=== PATIENT | male | born 1975 ===

== ENCOUNTER 2017-01-25 11:13 | Inpatient (IN) | payer MEDICAID ==
[2017-01-25] MEDS ORDERED: Magnesium Hydroxide LIQ* 30 ML UDC PO PRN (17:08)
[2017-01-25] MEDS ORDERED: Acetaminophen TAB* 325 MG PO PRN (17:08)
[2017-01-25] MEDS ORDERED: Senna TAB PO PRN (17:08)
[2017-01-25] MEDS ORDERED: Dextrose 50% Syringe 50 ML* 25 GM/50 ML SYRINGE IV PUSH PRN (17:29)
[2017-01-25] MEDS: Amoxicillin/Clavulanate TAB* 875 MG PO SCH (20:58)
[2017-01-25] MEDS: Famotidine TAB* 20 MG PO SCH (20:59)
[2017-01-25] MEDS: Docusate CAP* 100 MG PO SCH (20:59)
[2017-01-25] MEDS: Heparin VIAL(*) 5000 UNITS/ML VIAL (FIVE THOUSAND) SUBCUT SCH (20:59)
[2017-01-25] MEDS: Insulin LISPRO* 1 UNITS UNIT SUBCUT SCH (21:21)
--- NOTE | 2017-01-25 22:08 | HP ---
ADMISSION HISTORY AND PHYSICAL: DATE OF ADMISSION: 01/25/17 REASON FOR REFERRAL: Incarcerated left inguinal hernia; status post inguinal hernia repair and left orchiectomy. HISTORY OF PRESENT ILLNESS: Moreno Zaldivar is a 41-year-old male. He had a left inguinal hernia, which was left untreated for a while. He presented to [facility], 01/16/17. At that time, the patient was presenting with nausea, vomiting, occasional fevers and chills and left lower quadrant pain which had developed on 01/11/17. The patient had intermittent bouts of nonbloody vomiting with pain in his left lower quadrant which radiated into his groin. He felt like he was feverish. By the time he had presented to the emergency room, he had not had a bowel movement in 2 days. Upon presentation to the ER, he had dilated loops of bowel with evidence of inflammation and associated fluid deep within the scrotum. He also had evidence of acute kidney injury with a mildly elevated white blood cell count. The patient was seen by Surgery and it was decided that the patient required an exploratory laparotomy with possible fixing of the hernia and possible orchiectomy. The patient was taken to the operating room on 01/16/17 and underwent reduction of the left inguinal hernia with left orchiectomy and left inguinal hernia repair with polypropylene mesh and primary closure of the abdomen. He was extubated on 01/17. On 01/18/17, he was noted to be drowsy, which was felt to be due to opioid use through CH[employer]. The CH[employer] PERSON was discontinued. He had a continued ileus by 01/18/17, but by 01/21/17, he was passing gas and started on a clear liquid diet. By 01/22/17, his [place] was removed and was advanced to a full liquid diet. The patient had an elevated white blood cell count. On 01/23/17, the scrotum was erythematous and he was started on Zosyn for probable cellulitis. His white blood cell count was slowly falling. He was switched to oral Augmentin. He was felt to have physical therapy and occupational therapy needs. He is now being admitted for inpatient rehab so that he might return to independent living. PAST MEDICAL HISTORY: Not really significant. Of note, he had elevated blood sugars while at [facility]. He was put on fingersticks with appropriate sliding scale coverage. CURRENT MEDICATIONS: Include: 1. Tylenol. 2. Pepcid. 3. Heparin for DVT prophylaxis. 4. Augmentin. 5. Sliding scale insulin coverage. ALLERGIES: He has no known drug allergies. SOCIAL HISTORY: He is a nonsmoker, nondrinker. He lives with his parents in a 2- story house, but stays largely on one level. 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 REVIEW OF SYSTEMS: The patient report no current belly pain. No shortness of breath. No chest pain. PHYSICAL EXAMINATION VITAL SIGNS: The patient's temperature is 97.8, blood pressure is 135/66, pulse 79, and respirations 18. HEENT: His extraocular movements are intact. Tongue is midline. NECK: Supple. LUNGS: Sound clear to auscultation bilaterally. HEART: Sounds are regular. S1 and S2 audible. ABDOMEN: Examined. There were sutures along his right lower abdomen. His bowel sounds are audible, but diminished. NEUROLOGIC: He is awake, alert, oriented. Muscle strength is about 4+/5 throughout. EXAMINATION: Shows a large amount of scrotal edema with some erythema. He does have a RED drain still present from the scrotum. FUNCTIONAL EXAM: The patient transfers with min assist. ASSESSMENT: Status post repair of left inguinal hernia with left orchiectomy. PLAN: Integrate him into a comprehensive and therapeutic rehab program with the following goals: 1. Physical Therapy will work with the patient. They are going to work on functional transfer training, ambulation training with a walker. 2. Occupational Therapy will see the patient, work on his activities of daily living including toileting and toilet transfers. 3. We are going to continue his sliding scale coverage with fingersticks 4 times a day for hyperglycemia and possible diabetes. 4. His bowel will be regulated. 5. Heparin for DVT prophylaxis. 6. health services coordinator will be closely involved to make sure that any services and equipment the patient requires are in place prior to discharge. 7. Family training as appropriate. 8. Speech Therapy will see the patient, do a cognitive evaluation on the patient. 9. Advance directives: The patient is a full code. 10. Home with appropriate services. ESTIMATED LENGTH OF STAY: 7 to 10 days. [id number]/[facility] #: [id number] [facility]
[2017-01-26] MEDS: Heparin VIAL(*) 5000 UNITS/ML VIAL (FIVE THOUSAND) SUBCUT SCH ×3 (06:06→21:02)
[2017-01-26 06:49] LABS: Hematocrit 37 % (42-52); Hemoglobin 12.1 g/dl (14.0-18.0); Mean Corpuscular HGB Conc 33 g/dl (31-36); Mean Corpuscular Hemoglobin 28 pg (27-31); Mean Corpuscular Volume 85 fL (80-94); Mean Platelet Volume 9 um3 (7.4-10.4); Red Blood Count 4.34 10^6/ul (4.0-5.4); Red Cell Distribution Width 14 % (10.5-15); White Blood Count 12.7 10^3/ul (3.5-10.8)
[2017-01-26 07:02] LABS: Albumin 2.5 g/dL (3.2-5.2); BUN/Creatinine Ratio 17.4 (8-20); Calcium 8.4 mg/dL (8.6-10.3); EGFR African American 160.9 (>60); EGFR Non-African American 125.1 (>60); Globulin 3.2 g/dL (2-4); Potassium 4.6 mmol/L (3.5-5.0); Total Bilirubin 0.3 mg/dL (0.2-1.0); Total Protein 5.7 g/dL (6.4-8.9)
[2017-01-26] MEDS: Insulin LISPRO* 1 UNITS UNIT SUBCUT SCH ×4 (08:30→21:02)
[2017-01-26] MEDS: Famotidine TAB* 20 MG PO SCH ×2 (09:00→20:15)
[2017-01-26] MEDS: Amoxicillin/Clavulanate TAB* 875 MG PO SCH ×2 (09:00→20:16)
[2017-01-26] MEDS: Docusate CAP* 100 MG PO SCH ×2 (09:45→20:11)
--- NOTE | 2017-01-26 13:06 | PMRUTEAM ---
PMRU: Goals Current Status: Nursing: Current Status Skin Deviations [Groin] Incision Skin Deviations [Midline Incision Abdomen] Skin Deviation Description [ sutures CDI Groin] Skin Deviation Description [ jen CDI Midline Abdomen] Drain Type [Groin] RED Drain Bladder Current Status voiding appropriately Nutrition Current Status excellent FS, AC, HS under control Physical Therapy: Current Status Bed Mobility Assistance supervision Transfer Moblility Assistance CGA Transfer/Bed Mobility Rolling Walker Recommended Devices Ambulation Assistance CGA-Mis Ambulation Assistive Devices Rolling Walker Occupational Therapy: Current Status Upper Body Dressing Supervision Lower Body Dressing Supervision Bathing Min Assist Toileting Min Assist Toilet Transfer Supervision Eating Independent SPEECH THERAPY CURRENT STATUS: difficulty with vocabulary, following 2 step directions. Evaluation ongoing. Rec Therapy: Current Status Summary of Assessment and Pt. was recently admitted to the unit, open to Clinical Impression conversation. Pt. was vague with his responses and did not provide a lot of depth. Pt. was open to continued leisure visits. Treatment Goals Pt. will engage in leisure activities while on the unit. Treatment Plan Provide RT services and encourage involvement. Social Work: Current Status Discharge Plan return home with home care svs and family support Potential for Family Training TBD Anticipated Discharge Home Destination Discharge With home care svs and family support Goals: Physical Therapy: Initial Goals Bed Mobility Assistance Independent Transfer Mobility Assistance Independent Transfer/Bed Mobility Rolling Walker Recommended Devices Ambulation Independent Ambulation Recommended Devices Rolling Walker Ambulation Distance 150 Stairs Assistance Independent Stair Recommended Devices Two Rails Number of Stairs 10 Occupational Therapy: Initial Goals Goals to be Completed in (Days 3-4 ) Upper Body Bathing Routine Independent Lower Body Bathing Routine Modified Independent with Upper Body Dressing Routine Independent Lower Body Dressing Routine Modified Independent with Toilet Hygeine and Clothing Modified Independent with Management Routine Toilet Transfer Routine Modified Independent with Step-In Shower Transfer Modified Independent with Routine Functional Transfers for ADL Modified Independent with Grooming Routine Independent Feeding Routine Independent Social Work: Goals Discharge Plan return home with home care svs and family support Potential for Family Training TBD Anticipated Discharge Home Destination Discharge With home care svs and family support SPEECH THERAPY GOALS: follow 2 step directions with 40% accuracy; improve word retrieval to 80% accuracy. Care Plan: Care Plan Cardiovascular- Improve/Maintain Start: 01/25/17 22:24 Freq: DAILY Status: Active Target: Activity Type Activity Date Activity User E-Sign Co-Sign Detail Recorded Client Recorded Date Recorded By Document 01/26/17 08:00 [id number] 01/26/17 11:34 [id number] 01/26/17 08:00 PMRU Outcome: Cardiovascular Vital Signs q Shift for 48hrs Then BID Yes Daily Weight Ordered No Current Cardiovascular Outcome/Goal Maintain/ Achieve Baseline HR, BP , Perfusion Free of Abnormal Cardiac Symptoms Communication-Improve/Maintain Start: 01/25/17 22:24 Freq: DAILY Status: Active Target: Activity Type Activity Date Activity User E-Sign Co-Sign Detail Recorded Client Recorded Date Recorded By Document 01/26/17 04:04 [id number] 01/26/17 04:08 [id number] 01/26/17 04:04 PMRU Outcome: Communication/Cognitive Status Outcome/Goals Use Comm Tools/ Devices Makes Needs Known Effectively Coping/Psych-Improve/Maintain Start: 01/25/17 22:24 Freq: DAILY Status: Active Target: Activity Type Activity Date Activity User E-Sign Co-Sign Detail Recorded Client Recorded Date Recorded By Document 01/26/17 08:00 [id number] 01/26/17 11:34 [id number] 01/26/17 08:00 PMRU Outcome: Coping/Psychosocial Coping Outcome/Goals Verbalization of Acceptance of Rehab Admit Psychosocial Outcome/Goals Maintain/ Improve Emotional Health Demonstrates Knowledge of Healthy Coping Mechanisms Available Cooperate/ Participate in Plan Progression Toward Outcome/Goals - Progressing Coping Progression Toward Outcome/Goals - Progressing Psychosocial DVT Prophylaxis- Improve/Maintain Start: 01/25/17 22:24 Freq: DAILY Status: Active Target: Activity Type Activity Date Activity User E-Sign Co-Sign Detail Recorded Client Recorded Date Recorded By Document 01/26/17 08:00 [id number] 01/26/17 11:34 [id number] 01/26/17 08:00 PMRU Outcome: DVT Prophylaxis Outcome/Goals Remains Free of DVT TEDS Stockings on Every AM, Off at HS Progression Toward Outcome/Goals Progressing Discharge Planning - Improve/Maintain Start: 01/25/17 22:24 Freq: DAILY Status: Active Target: Activity Type Activity Date Activity User E-Sign Co-Sign Detail Recorded Client Recorded Date Recorded By Document 01/26/17 04:04 [id number] 01/26/17 04:08 [id number] 01/26/17 04:04 PMRU Outcome: Discharge Planning Update Patient Family No Outcome/Goals Demonstrates Understanding of Discharge Plan Education-Improve/Maintain Start: 01/25/17 22:24 Freq: DAILY Status: Active Target: Activity Type Activity Date Activity User E-Sign Co-Sign Detail Recorded Client Recorded Date Recorded By Document 01/26/17 08:00 [id number] 01/26/17 11:34 [id number] 01/26/17 08:00 PMRU Outcome: Education Outcome/Goals Encourage Questions Progression Toward Outcome/Goals Progressing /GI-Improve/Maintain Start: 01/25/17 22:24 Freq: DAILY Status: Active Target: Activity Type Activity Date Activity User E-Sign Co-Sign Detail Recorded Client Recorded Date Recorded By Document 01/26/17 08:00 [id number] 01/26/17 11:34 [id number] 01/26/17 08:00 PMRU Outcome: Genitourinary/ Gastrointestinal Genitourinary- Outcome/Goals Maintain/ Achieve Urinary Continence Remain Free of Hospital- Acquired UTI Gastrointestinal-Outcome/Goals Maintain/ Achieve Bowel Regularity in Accordance with Pt's Baseline Prevent Constipation Progression Toward Outcome/Goals - Progressing Progression Toward Outcome/Goals - GI Progressing Neurological- Improve/Maintain Start: 01/25/17 22:24 Freq: DAILY Status: Active Target: Activity Type Activity Date Activity User E-Sign Co-Sign Detail Recorded Client Recorded Date Recorded By Document 01/26/17 08:00 [id number] 01/26/17 11:34 [id number] 01/26/17 08:00 PMRU Outcome: Neurological Weakness/Aphasia Weakness Aphasia Outcome/Goals Maintain/ Achieve Baseline Neurological Status Improve Neurological Status Progression Toward Outcome/Goals Progressing Outcome/Goals Met Comment pt has aphasia Nutrition/Swallowing- Improve/Maintain Start: 01/25/17 22:24 Freq: DAILY Status: Active Target: Activity Type Activity Date Activity User E-Sign Co-Sign Detail Recorded Client Recorded Date Recorded By Document 01/26/17 08:00 [id number] 01/26/17 11:34 [id number] 01/26/17 08:00 PMRU Outcome: Nutrition/Swallowing Outcome/Goals Demonstrates Adequate Hydration/ Prevents Dehydration Maintain/ Improve Nutritional Status Progression Toward Outcome/Goals Progressing Pain/Comfort- Improve/Maintain Start: 01/25/17 22:24 Freq: DAILY Status: Active Target: Activity Type Activity Date Activity User E-Sign Co-Sign Detail Recorded Client Recorded Date Recorded By Document 01/26/17 08:00 [id number] 01/26/17 11:34 [id number] 01/26/17 08:00 PMRU Outcome: Pain/Comfort Outcome/Goals Demonstrates Knowledge and Use of Available Comfort Measures Achieves Acceptable Comfort/Pain Level as Determined by Patient/Condit Maintain Comfort Level Allowing Patient to Fully Participate in Rehab Progression Toward Outcome/Goals Progressing Outcome/Goals Met Comment denies pain Safety- Improve/Maintain Start: 01/25/17 22:24 Freq: DAILY Status: Active Target: Activity Type Activity Date Activity User E-Sign Co-Sign Detail Recorded Client Recorded Date Recorded By Document 01/26/17 08:00 [id number] 01/26/17 11:34 [id number] 01/26/17 08:00 PMRU Outcome: Safety Outcome/Goals Remain Free of Injury or Harm Cooperates with Safety Measures for Least Restrictive Environment Progression Toward Outcome/Goals Progressing Outcome/Goals Met Comment tamper-free PA in place - pt ringing appropriately Skin- Improve/Maintain Start: 01/25/17 22:24 Freq: DAILY Status: Active Target: Activity Type Activity Date Activity User E-Sign Co-Sign Detail Recorded Client Recorded Date Recorded By Document 01/26/17 08:00 [id number] 01/26/17 11:34 [id number] 01/26/17 08:00 PMRU Outcome: Skin Skin Risk Level Medium Outcome/Goals Maintain/ Improve Skin Intergrity Surgical Incisions Healing Progression Toward Outcome/Goals Progressing Outcome/Goals Met Comment pt repositioning on his own Medicine Note: Length of Stay: [1 week] Anticipated Discharge Destination: Home Tentative Discharge Date: [home] Discharged to: [home]
[2017-01-27] MEDS: Heparin VIAL(*) 5000 UNITS/ML VIAL (FIVE THOUSAND) SUBCUT SCH ×3 (05:37→21:36)
[2017-01-27] MEDS: Insulin LISPRO* 1 UNITS UNIT SUBCUT SCH (08:03)
[2017-01-27] MEDS: Famotidine TAB* 20 MG PO SCH ×2 (09:00→21:36)
[2017-01-27] MEDS: Docusate CAP* 100 MG PO SCH ×2 (09:00→21:35)
[2017-01-27] MEDS: Amoxicillin/Clavulanate TAB* 875 MG PO SCH ×2 (09:00→21:36)
[2017-01-27 09:48] LABS: Hematocrit 36 % (42-52); Hemoglobin 12.1 g/dl (14.0-18.0); Mean Corpuscular HGB Conc 34 g/dl (31-36); Mean Corpuscular Hemoglobin 29 pg (27-31); Mean Corpuscular Volume 85 fL (80-94); Mean Platelet Volume 8 um3 (7.4-10.4); Red Blood Count 4.21 10^6/ul (4.0-5.4); Red Cell Distribution Width 13 % (10.5-15); White Blood Count 12.6 10^3/ul (3.5-10.8)
[2017-01-28] MEDS: Heparin VIAL(*) 5000 UNITS/ML VIAL (FIVE THOUSAND) SUBCUT SCH ×3 (05:57→21:55)
[2017-01-28] MEDS: Docusate CAP* 100 MG PO SCH ×2 (07:40→21:46)
[2017-01-28] MEDS: Amoxicillin/Clavulanate TAB* 875 MG PO SCH ×2 (08:18→21:55)
[2017-01-28] MEDS: Famotidine TAB* 20 MG PO SCH ×2 (08:18→21:55)
[2017-01-29] MEDS: Heparin VIAL(*) 5000 UNITS/ML VIAL (FIVE THOUSAND) SUBCUT SCH ×3 (06:40→22:17)
[2017-01-29] MEDS: Famotidine TAB* 20 MG PO SCH ×2 (08:19→22:16)
[2017-01-29] MEDS: Amoxicillin/Clavulanate TAB* 875 MG PO SCH ×2 (08:19→22:16)
[2017-01-29] MEDS: Docusate CAP* 100 MG PO SCH ×2 (08:20→22:15)
[2017-01-30] MEDS: Heparin VIAL(*) 5000 UNITS/ML VIAL (FIVE THOUSAND) SUBCUT SCH ×3 (06:52→21:09)
[2017-01-30] MEDS: Amoxicillin/Clavulanate TAB* 875 MG PO SCH ×2 (08:27→20:09)
[2017-01-30] MEDS: Famotidine TAB* 20 MG PO SCH ×2 (08:27→20:09)
[2017-01-30] MEDS: Docusate CAP* 100 MG PO SCH ×2 (10:40→20:09)
--- NOTE | 2017-01-30 12:58 | PMRUTEAM ---
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] be intact Skin Deviation Description [ jen removed by MD Midline Abdomen] Drain Type [scrotum] RED Drain Drain Type [Groin] RED Drain Bladder Current Status voiding appropriately Nutrition Current Status excellent FS, AC, HS under control Physical Therapy: Current Status Bed Mobility Assistance Supervision Transfer Moblility Assistance Supervision Transfer/Bed Mobility None Recommended Devices Ambulation Assistance Supervision Ambulation Assistive Devices None Number of Feet Patient 600' 300' and 150' Ambulated Stairs Assistance Supervision Stairs Recommended Devices One Rail,Two Rails Number of Stairs 12 Occupational Therapy: Current Status Upper Body Dressing Independent Lower Body Dressing Independent,Ind with Adaptive Equip Bathing Independent,Ind with Adaptive Equip Toileting Ind with Adaptive Equip Toilet Transfer Ind with Adaptive Equip Shower Transfer Supervision Eating Independent Rec Therapy: Current Status Summary of Assessment and RT assessment complete and pt. is aware of RT Clinical Impression services. Minimal interests were identified by pt . but he was open to continued visits and conversation. Treatment Goals Pt. will engage in leisure activities while on the unit. Treatment Plan Provide RT services and encourage involvement. Social Work: Current Status Discharge Plan return home with home care svs and family support Potential for Family Training pt's brother in law will do family training Anticipated Discharge Home Destination Discharge With home care svs and family support Nutrition: Current Status Monitoring consistently eating 100% of meals; regular diet. FS maintained in low-100 range; unsure why FS being checked (no hx DM, A1c only 5.7%, no steroids). Skin is intact w/low risk of breakdown . Possible d/c 02/02 prior to planned full nutrition assessment 02/04. Speech: Current Status Assessment The patient is making steady gains; has met some objectives. He will continue to benefit from skilled [employer] services targeting motor speech and expressive/receptive language goals to increase function, safety, and independence of daily tasks. Goals: Physical Therapy: Initial Goals Bed Mobility Assistance Independent Transfer Mobility Assistance Independent Transfer/Bed Mobility Rolling Walker Recommended Devices Ambulation Independent Ambulation Recommended Devices Rolling Walker Ambulation Distance 150 Stairs Assistance Independent Stair Recommended Devices Two Rails Number of Stairs 10 Physical Therapy: Updated Goals Transfer/Bed Mobility Rolling Walker Recommended Devices Occupational Therapy: Initial Goals Goals to be Completed in (Days 3-4 ) Upper Body Bathing Routine Independent Lower Body Bathing Routine Modified Independent with Upper Body Dressing Routine Independent Lower Body Dressing Routine Modified Independent with Toilet Hygeine and Clothing Modified Independent with Management Routine Toilet Transfer Routine Modified Independent with Step-In Shower Transfer Modified Independent with Routine Functional Transfers for ADL Modified Independent with Grooming Routine Independent Feeding Routine Independent Nutrition: Goals Intervention Goals 1. adequate po intake to support stable wt and lean body mass without add'l wt gain 2. maintain K and other electrolytes within adequate ranges 3. maintain bowel regularity without c/o constipation (or diarrhea) Speech: Goals Speech Goal 1 Receptive Language Goal 1 Comments Long-Term Goal: The patient will demonstrate language comprehension skills in order to functionally communicate with family and peers at home, work, and in the community. Short-Term Goal: 1. The patient will successfully follow 2-step directions with 40% accuracy, no cues. Status: Simple, 2-step directions: 98% accuracy, no cues. Objective met; revise objective to complete complex 2(+)-step directions with 50% accuracy, no cues. 2. The patient will successfully complete complex /abstract receptive language tasks with 100% accuracy, no cues. Status: The patient responded to before/after yes/ no questions at 100% accuracy. The patient responded to complex yes/no questions at 60% accuracy. 3. The patient will successfully complete left/ right discrimination tasks with 90% accuracy, no cues. Status: Left/Right discrimination exercises pertaining to body parts: 100% accuracy, no cues. Objective met; no revision necessary at this time. Speech Goal 2 Expressive Language Speech Goal 2 Comments Long-Term Goal: The patient will successfully communicate wants, needs, thoughts, and feelings verbally at home, at work, and within the community; independent use of compensatory strategies if needed. Short-Term Goals: 1. The patient will successfully complete vocabulary tasks with 80% accuracy, no cues. Status: - Confrontational namin% accuracy, no cues. - Patient verbally generated 9,6,8,4,4 items within a concrete category with increased time. - The patient described daily objects by use and function with other descriptors as needed with moderate cues. - The patient was educated on word finding strategies and provided with written handout of strategies for which he stated understanding and agreement. Objective ongoing to target tasks of increasing levels of difficulty. 2. The patient will successfully complete complex verbal expression and word fluency tasks with 65% accuracy, maximum cues. Status: Objective not directly targeted this date; objective ongoing. 3. The patient will successfully learn and utilize compensatory strategies to optimize expressive communication >75% of the time, no cues . Status: Objective not directly targeted this date; objective ongoing. Speech Goal 3 Motor Speech Speech Goal 3 Comments Long-Term Goal: The patient will successfully participate in spontaneous, reciprocal conversation at home, at work, and in the community, without deficits with speech intelligibility. Short-Term Goals: 1. The patient will successfully complete 2-3 syllable diadochokinetic (DDK) rate tasks contaning /t/ and /k/ speech sounds with 80% accuracy, no cues. Status: 2-3 syllable DDK: 90% accuracy, need for slowed speech rate to maintain accuracy. Ongoing. 2. The patient will successfully complete 2-word phrase diadochokinetic rate tasks with 75% accuracy, no cues. Status: 2-3 word DDK phrases: 90% accuracy, need for slowed speech rate to maintain accuracy. Ongoing. 3. The patient will successfully complete sentence level diadochokinetic rate tasks with 75% accuracy, no cues. Status: Sentence level DDK: 45% accuracy, no cues. Ongoing. Social Work: Goals Discharge Plan return home with home care svs and family support Potential for Family Training pt's brother in law will do family training Anticipated Discharge Home Destination Discharge With home care svs and family support Care Plan: Care Plan ADL's - Improve/Maintain Start: 01/25/17 22:24 Freq: DAILY Status: Active Target: Activity Type Activity Date Activity User E-Sign Co-Sign Detail Recorded Client Recorded Date Recorded By Document 01/26/17 15:45 [id number] 01/26/17 15:45 [id number] 01/26/17 15:45 PMRU Outcome: ADL's/ADL Transfers Orders/Interventions Occupational Therapy Evaluation & Treatment Communication Tool in Patient Room Patient to receive OT 5x/wk for 60-120 Therex min/day Self Care Management Group Therapy UE/LE ADL's with Assist Yes: mod I ADL Transfers with Assist Yes: mod I Toileting: Transfers,Clothing Management Yes: mod I ,Hygeine w/Assist Light Kitchen/Laundry w/Assist No Cardiovascular- Improve/Maintain Start: 01/25/17 22:24 Freq: DAILY Status: Active Target: Activity Type Activity Date Activity User E-Sign Co-Sign Detail Recorded Client Recorded Date Recorded By Document 01/30/17 08:00 [id number] 01/30/17 11:00 [id number] 01/30/17 08:00 PMRU Outcome: Cardiovascular Vital Signs q Shift for 48hrs Then BID Yes Daily Weight Ordered No Current Cardiovascular Outcome/Goal Maintain/ Achieve Baseline HR, BP , Perfusion Free of Abnormal Cardiac Symptoms Progression Toward Outcome/Goal Progressing Communication-Improve/Maintain Start: 01/25/17 22:24 Freq: DAILY Status: Active Target: Activity Type Activity Date Activity User E-Sign Co-Sign Detail Recorded Client Recorded Date Recorded By Document 01/30/17 11:22 [id number] 01/30/17 11:23 [id number] 01/30/17 11:22 PMRU Outcome: Communication/Cognitive Status Outcome/Goals Use Comm Tools/ Devices Makes Needs Known Effectively Other Outcomes/Goals 1. Receptive Language: The patient will demonstrate language comprehension skills in order to functionally communicate with family and peers at home, work, and in the community. 2. Expressive Language: The patient will successfully communicate wants, needs, thoughts, and feelings verbally at home, at work, and within the community; independent use of compensatory strategies if needed. 3. Motor Speech : The patient will successfully participate in spontaneous, reciprocal conversation at home, at work, and in the community, without deficits with speech intelligibility . Progression Toward Outcomes/Goals Progressing Outcome/Goals Met Comment Confrontational namin% Generative naming 4-9 items with increased time Describe daily objects: moderate cues Complex yes/no questions: 60% accuracy Before/after yes/no questions 100% accuracy Motor Speech: 50% accuracy/ intelligibility at the sentence reading level for diadochokinetic rate tasks Coping/Psych-Improve/Maintain Start: 01/25/17 22:24 Freq: DAILY Status: Active Target: Activity Type Activity Date Activity User E-Sign Co-Sign Detail Recorded Client Recorded Date Recorded By Document 01/30/17 08:00 [id number] 01/30/17 11:00 [id number] 01/30/17 08:00 PMRU Outcome: Coping/Psychosocial Coping Outcome/Goals Verbalization of Acceptance of Rehab Admit Psychosocial Outcome/Goals Maintain/ Improve Emotional Health Demonstrates Knowledge of Healthy Coping Mechanisms Available Cooperate/ Participate in Plan Progression Toward Outcome/Goals - Progressing Coping Progression Toward Outcome/Goals - Progressing Psychosocial DVT Prophylaxis- Improve/Maintain Start: 01/25/17 22:24 Freq: DAILY Status: Active Target: Activity Type Activity Date Activity User E-Sign Co-Sign Detail Recorded Client Recorded Date Recorded By Document 01/30/17 08:00 [id number] 01/30/17 11:00 [id number] 01/30/17 08:00 PMRU Outcome: DVT Prophylaxis Outcome/Goals Remains Free of DVT TEDS Stockings on Every AM, Off at HS Progression Toward Outcome/Goals Progressing Discharge Planning - Improve/Maintain Start: 01/25/17 22:24 Freq: DAILY Status: Active Target: Activity Type Activity Date Activity User E-Sign Co-Sign Detail Recorded Client Recorded Date Recorded By Document 01/30/17 00:13 [id number] 01/30/17 00:14 [id number] 01/30/17 00:13 PMRU Outcome: Discharge Planning Identify Patient Needs yes Update Patient Family No Outcome/Goals Demonstrates Understanding of Discharge Plan Progression Toward Outcome/Goals Progressing Education-Improve/Maintain Start: 01/25/17 22:24 Freq: DAILY Status: Active Target: Activity Type Activity Date Activity User E-Sign Co-Sign Detail Recorded Client Recorded Date Recorded By Document 01/30/17 08:00 [id number] 01/30/17 11:00 [id number] 01/30/17 08:00 PMRU Outcome: Education Outcome/Goals Encourage Questions Progression Toward Outcome/Goals Progressing /GI-Improve/Maintain Start: 01/25/17 22:24 Freq: DAILY Status: Active Target: Activity Type Activity Date Activity User E-Sign Co-Sign Detail Recorded Client Recorded Date Recorded By Document 01/30/17 08:00 [id number] 01/30/17 11:00 [id number] 01/30/17 08:00 PMRU Outcome: Genitourinary/ Gastrointestinal Genitourinary- Outcome/Goals Maintain/ Achieve Urinary Continence Remain Free of Hospital- Acquired UTI Gastrointestinal-Outcome/Goals Maintain/ Achieve Bowel Regularity in Accordance with Pt's Baseline Prevent Constipation Progression Toward Outcome/Goals - Progressing Progression Toward Outcome/Goals - GI Progressing Outcome/Goals Met Comment pt had smears, and bm 01/29/17 Mobility- Improve/Maintain Start: 01/25/17 22:24 Freq: DAILY Status: Active Target: Activity Type Activity Date Activity User E-Sign Co-Sign Detail Recorded Client Recorded Date Recorded By Document 01/29/17 12:17 [id number] 01/29/17 12:18 [id number] 01/29/17 12:17 PMRU Outcome: Mobility Physical Therapy Evaluation and Yes Treatment WBAT Yes Device Yes Patient to be seen 5x/wk for 60-120 min/ Therex day for: Mobility Training Gait Training Balance Outcome/Goals Maintain/ Achieve Baseline Mobility Status Improve Mobility Status Progression Toward Outcome/Goals Progressing Neurological- Improve/Maintain Start: 01/25/17 22:24 Freq: DAILY Status: Active Target: Activity Type Activity Date Activity User E-Sign Co-Sign Detail Recorded Client Recorded Date Recorded By Document 01/30/17 08:00 [id number] 01/30/17 11:00 [id number] 01/30/17 08:00 PMRU Outcome: Neurological Weakness/Aphasia Aphasia Outcome/Goals Maintain/ Achieve Baseline Neurological Status Improve Neurological Status Progression Toward Outcome/Goals Progressing Outcome/Goals Met Comment pt has aphasia Nutrition/Swallowing- Improve/Maintain Start: 01/25/17 22:24 Freq: DAILY Status: Active Target: Activity Type Activity Date Activity User E-Sign Co-Sign Detail Recorded Client Recorded Date Recorded By Document 01/30/17 08:00 [id number] 01/30/17 11:00 [id number] 01/30/17 08:00 PMRU Outcome: Nutrition/Swallowing Outcome/Goals Demonstrates Adequate Hydration/ Prevents Dehydration Maintain/ Improve Nutritional Status Progression Toward Outcome/Goals Progressing Pain/Comfort- Improve/Maintain Start: 01/25/17 22:24 Freq: DAILY Status: Active Target: Activity Type Activity Date Activity User E-Sign Co-Sign Detail Recorded Client Recorded Date Recorded By Document 01/30/17 08:00 [id number] 01/30/17 11:00 [id number] 01/30/17 08:00 PMRU Outcome: Pain/Comfort Outcome/Goals Demonstrates Knowledge and Use of Available Comfort Measures Achieves Acceptable Comfort/Pain Level as Determined by Patient/Condit Maintain Comfort Level Allowing Patient to Fully Participate in Rehab Progression Toward Outcome/Goals Progressing Outcome/Goals Met Comment denies pain Safety- Improve/Maintain Start: 01/25/17 22:24 Freq: DAILY Status: Active Target: Activity Type Activity Date Activity User E-Sign Co-Sign Detail Recorded Client Recorded Date Recorded By Document 01/30/17 08:00 [id number] 01/30/17 11:00 [id number] 01/30/17 08:00 PMRU Outcome: Safety Outcome/Goals Remain Free of Injury or Harm Cooperates with Safety Measures for Least Restrictive Environment Progression Toward Outcome/Goals Progressing Outcome/Goals Met Comment PA in place - pt ringing appropriately Skin- Improve/Maintain Start: 01/25/17 22:24 Freq: DAILY Status: Active Target: Activity Type Activity Date Activity User E-Sign Co-Sign Detail Recorded Client Recorded Date Recorded By Document 01/30/17 08:00 [id number] 01/30/17 11:00 [id number] 01/30/17 08:00 PMRU Outcome: Skin Skin Risk Level Low Outcome/Goals Maintain/ Improve Skin Intergrity Surgical Incisions Healing Progression Toward Outcome/Goals Progressing Outcome/Goals Met Comment pt repositioning on his own, air mattress in use Medicine Note: Length of Stay: 1-2 days Anticipated Discharge Destination: Home Tentative Discharge Date: 03/03/17 Discharged to: Home
[2017-01-31 05:30] VITALS: BP 159/84
[2017-01-31] MEDS: Heparin VIAL(*) 5000 UNITS/ML VIAL (FIVE THOUSAND) SUBCUT SCH (05:32)
[2017-01-31] MEDS: Amoxicillin/Clavulanate TAB* 875 MG PO SCH (08:19)
[2017-01-31] MEDS: Docusate CAP* 100 MG PO SCH (08:20)
[2017-01-31] MEDS: Famotidine TAB* 20 MG PO SCH (08:20)
[2017-01-31 09:40] LABS: Hematocrit 39 % (42-52); Hemoglobin 13.1 g/dl (14.0-18.0); Mean Corpuscular HGB Conc 33 g/dl (31-36); Mean Corpuscular Hemoglobin 29 pg (27-31); Mean Corpuscular Volume 86 fL (80-94); Mean Platelet Volume 8 um3 (7.4-10.4); Red Blood Count 4.59 10^6/ul (4.0-5.4); Red Cell Distribution Width 14 % (10.5-15); White Blood Count 10.6 10^3/ul (3.5-10.8)
--- NOTE | 2017-02-03 02:43 | DS ---
DISCHARGE SUMMARY: DATE OF ADMISSION: 01/25/17 DATE OF DISCHARGE: 01/31/17 DISCHARGE DIAGNOSES: 1. Left inguinal hernia repair. 2. Left orchiectomy. 3. Scrotal edema. 4. 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 HISTORY OF PRESENT ILLNESS AND HOSPITAL COURSE: For complete history of the events leading up to his rehab stay, please see the history and physical dictated by me on 01/25/17. While on the rehab unit, his suture line remained clean and dry. He was on oral Augmentin. His RED drain continue to be emptied. On 01/30/17, his jen were removed without incident. His RED drain became loose on 01/31/17. We contacted the surgeon who advised us to pull the drain. This was done. The patient was otherwise medically stable. He was seen by Physical Therapy and Occupational Therapy and made good gains with both disciplines. With physical therapy at the time of admission, the patient required contact guard to min assist to do a transfer. He was able to ambulate 15 feet with contact guard. With occupational therapy, he was min assist with toileting and toilet transfers. He was contact guard for supervision for dressing. By the time of discharge, the patient was transferring independently , he was able to ambulate 600 feet independently. He was doing his activities of daily living independently. His family was brought in to train and how to care for the RED drain site. He was discharged to home on 01/31/17. DISCHARGE DIET: Regular. DISCHARGE MEDICATIONS: Senokot 2 tablets at bedtime as needed. FOLLOWUP: The patient will follow up with the [facility] for surgical followup. They will call to make an appointment. They currently have an appointment scheduled for 02/05/17. They will also follow up with Speech Therapy. Speech Therapy will work on his cognitive function. [id number]/[facility] #: [id number] SANDRA
== END 2017-01-31 13:25 | disposition home or self-care (01) | DRG 950 ==
LOC: PMRU 15:20
PROVIDERS: ADMIT Physical Medicine & Rehabilitation; ATTEND Physical Medicine & Rehabilitation
PROC: F07Z5ZZ Bed Mobility Treatment (ICD-10-PCS; principal; 2017-01-25)
PROC: F07Z9ZZ Gait Training/Functional Ambulation Treatment (ICD-10-PCS; 2017-01-25)
PROC: F07Z8ZZ Transfer Training Treatment (ICD-10-PCS; 2017-01-25)
PROC: F08Z0ZZ Bathing/Showering Techniques Treatment (ICD-10-PCS; 2017-01-25)
PROC: F08Z1ZZ Dressing Techniques Treatment (ICD-10-PCS; 2017-01-25)
PROC: F08Z3ZZ Feeding/Eating Treatment (ICD-10-PCS; 2017-01-25)
DX: Z48.816 Encounter for surgical aftercare following surgery on the genitourinary system (principal); R73.9 Hyperglycemia, unspecified; N50.89 Other specified disorders of the male genital organs; R41.89 Other symptoms and signs involving cognitive functions and awareness
CPT/HCPCS: 36415; 80053; 83036; 85025; 85027; A9270-GY; J1644